=== PATIENT | female | born 1940 | race Caucasian/White ===

== ENCOUNTER 2022-02-08 14:55 | Outpatient (REF) | payer MEDICARE, SELFPAY ==
[2022-02-08 15:16] LABS: MANUAL DIFF FLAG NO
[2022-02-08 15:26] LABS: Basophils Percent Auto 0.6 % (0-2); Eosinophils Percent Auto 0.6 % (0-4); Hemoglobin 11.1 g/dl (12.0-16.0); Imm Gran Abs Auto 0.01 X10*3/uL (0.00-0.03); Imm Gran Pct Auto 0.2 % (0.0-0.4); Lymphocytes Absolute Auto 2.1 X10*3/uL (1.2-4.9); Mean Corpuscular HGB Conc 32.6 g/dl (31.0-35.0); Mean Corpuscular Hemoglobin 28.3 pg (27.0-33.0); Mean Corpuscular Volume 86.7 fL (80.0-98.0); Mean Platelet Volume 10.1 fL (9.4-12.3); Monocytes Absolute Auto 0.7 X10*3/uL (0.1-1.2); Neutrophils Absolute Auto 3.7 x10*3/uL (2.0-8.3); Neutrophils Percent Auto 56.6 % (45-73); Platelet Count 436 X10*3/uL (160-400); Red Blood Count 3.92 X10*6/uL (4.20-5.50); Red Cell Distribution Width 16.7 % (11.0-16.0); White Blood Count 6.5 X10*3/uL (4.8-10.8)
[2022-02-08 15:48] LABS: Iron 70 mcg/dL (30-160); Percent Iron Saturation 16 % (15-50); Total Iron Binding Capacity 428 mcg/dL (228-428); Unsaturated Iron Binding 358 ug/dL
[2022-02-08 16:04] LABS: Ferritin 35 ng/mL (10-250)
== END 2022-02-08 14:56 | disposition home or self-care (01) ==
LOC: HO.LAB 14:55
PROVIDERS: Visit Provider Internal Medicine Gastroenterology
DX: D50.9 Iron deficiency anemia, unspecified (principal)
CPT/HCPCS: 36415; 82728; 83540; 85025

== ENCOUNTER 2022-03-14 09:48 | Day surgery (SDC) | payer MEDICARE, SELFPAY ==
[2022-03-08 12:46] VITALS: BMI 17.4
--- NOTE | 2022-03-13 08:38 | P.CONAN_ITS ---
Documented by User: Zully Sepulveda NP 03/13/22 08:39 HPI - Anesthesia Eval Consult details Narrative: 81yo F for Upper Endoscopy and Colonoscopy [facility] Past Medical History Medical History Anemia Arthritis COVID-19 vaccine series completed Memory changes Surgical History Surgical History Hx of cholecystectomy Social History Social History Housing Other:: assisted living facility-[facility] Are you a primary career technical counselor to a significant other at home: No Do you presently have visiting nurse or other home services: Yes (as above noted) Patient Tobacco Use Status: Never used Tobacco Use of substances other than those prescribed or required for medical reasons: No Have you been hit, kicked, punched, or otherwise hurt by someone within the past year? If so, by whom?: No Are you DNR?: No Advance Directives Information Provided: Yes (will fax or bring DOS) Advance Directives on File: No Recently lost weight without trying: No Eating poorly because of decreased appetite: No Nutrition Risks: Surgical patient >75years Poor oral hygiene: No (full upper and partial lower denture) Meds Allergies Allergy/AdvReac Type Severity Reaction Status Date / Time Seasonal Allergies Allergy Mild Itchy Eyes Verified 03/08/22 12:21 Home Medications Medication Instructions Recorded Confirmed Last Taken Type diclofenac sodium 50 mg 1 tab PO BID 03/08/22 03/08/22 Unknown History tablet,delayed release ferrous sulfate 325 mg (65 mg 325 mg PO DAILY 03/08/22 03/08/22 Unknown History iron) tablet Exam Exam Date and Time: March 13, 2022 0838 Height,Weight and Vital Signs: Height 5 ft 2 in Weight 43.091 kg Pertinent Lab Results Pertinent Lab Results: Laboratory Tests 02/08/22 15:14 WBC 6.5 Hgb 11.1 L Hct 34.0 L Plt Count 436 H Assessment and Plan Assessment Anesthesia Assessment: Chart Reviewed Documented by User: Jairo Obrien MD 03/14/22 11:33 [facility] Past Medical History Medical History Anemia Arthritis COVID-19 vaccine series completed Memory changes Family History Family history of problems with anesthesia: No Surgical History Surgical History Hx of cholecystectomy History of Problems with Anesthesia: No Social History [facility] Are you a primary career technical counselor to a significant other at home: No Do you presently have visiting nurse or other home services: Yes (as above noted) Patient Tobacco Use Status: Never used Tobacco Use of substances other than those prescribed or required for medical reasons: No Have you been hit, kicked, punched, or otherwise hurt by someone within the past year? If so, by whom?: No Are you DNR?: No Advance Directives Information Provided: Yes (will fax or bring DOS) Advance Directives on File: No Recently lost weight without trying: No Eating poorly because of decreased appetite: No Nutrition Risks: Surgical patient >75years Poor oral hygiene: No (full upper and partial lower denture) Meds Allergies Allergy/AdvReac Type Severity Reaction Status Date / Time Seasonal Allergies Allergy Mild Itchy Eyes Verified 03/08/22 12:21 Home Medications Medication Instructions Recorded Confirmed Last Taken Type diclofenac sodium 50 mg 1 tab PO BID 03/08/22 03/08/22 Unknown History tablet,delayed release ferrous sulfate 325 mg (65 mg 325 mg PO DAILY 03/08/22 03/08/22 Unknown History iron) tablet Exam Airway Mallampati Class: I TM Dist: >3cm Neck ROM: Full Denture: Upper and Lower Loose/Missing/Broken Teeth: Yes Assessment and Plan Assessment Anesthesia Assessment: Anesthesia Plan Discussed Final Anesthetic Review Family History of Problems with Anesthesia: No History of Problems with Anesthesia: No NPO: Yes ASA Class: II Final Preanesthetic Review: No Changes in Pt Med Stat, Meds/Allgs Chart Reviewed, Consent Obtained/Reviewed and Anes Risks/Benef Reviewed Patient Risk: Low Procedure Risk: Low Anesthetic Plan Anesthetic Plan: MAC: Disposition: Standard PACU
[2022-03-14] MEDS: Sodium Phosphate,Mono-Dibasic 133 ML ENEMA PR ×2 (10:55→11:05)
[2022-03-14 10:57] VITALS: BP 127/70; PULSE 86; RESP 16; TEMP 37.1; O2SAT 97
--- NOTE | 2022-03-14 11:03 | P.HPSUR_ITS ---
Pre-Procedural Eval Section A Date of Service: 03/14/22 Section B Chief Complaint: Iron deficiency anemia, unspecified Details of Present Illness: see H&P no changes Relevant Family History (Specify if Yes): No Relevant Social History: None Present Medications: see Short Stay Collaborative assessment Medical History: No relevant PMH History of Previous Operations: No relevant previous surgery Allergies: Allergies Allergy/AdvReac Type Severity Reaction Status Date / Time Seasonal Allergies Allergy Mild Itchy Eyes Verified 03/08/22 12:21 Review of Systems Sugical H&P ROS: Negative: Constitution, Cardiovascular, Respiratory, Neurolo gical, Psychiatric, Hem-Onc, Allergic/Immunologic, Gastrointestinal, Genitourinary, Musculoskeletal, Integumentary, Endocrine and Eyes/Ears/Nose/Throat Exam Surgical H&P Exam: Normal: HEENT, Normal: Heart, Normal: Lungs, Normal: Extremities, Normal: Abdomen, Normal: Skin and Normal: Neurological Plan Diagnosis/Plan: Unchanged I have reviewed the history and physical and performed a pertinent physical examination on my patient. No changes have occurred unless specified.
[2022-03-14] MEDS: Lactated Ringers 1,000 ML 100 ML IVCONT (11:13)
--- NOTE | 2022-03-14 12:12 | P.BOP_ITS ---
Brief Operative Note Date of Service: 03/14/22 Pre-op diagnosis: iron def anemia Post-op diagnosis: same Procedure: egd colonoscopy Surgeon: Marcello Zapata Anesthesia: MAC Was an Hospice Team Lead used for this Procedure?: No Estimated blood loss (mL): 2 Pathology: other (bxs duodenum, antrum) Condition: stable Disposition: PACU
[2022-03-14 12:15] VITALS: BP 109/68; PULSE 67; RESP 12; TEMP 36.1; O2SAT 98
[2022-03-14 12:30] VITALS: BP 107/68; PULSE 77; RESP 16; TEMP 36.1; O2SAT 96
--- NOTE | 2022-03-14 12:31 | OP_ITS ---
SURGEON: Marcello Zapata MD INDICATIONS: Iron deficiency anemia. PREOPERATIVE DIAGNOSIS: POSTOPERATIVE DIAGNOSIS: PROCEDURE PERFORMED: Upper endoscopy with biopsy, colonoscopy to the terminal ileum. ESTIMATED BLOOD LOSS: COMPLICATIONS: ANESTHESIA: ASSISTANTS: SPECIMENS: MEDICATIONS: Monitored anesthesia care. DESCRIPTION OF PROCEDURE: History and physical were performed. The risks and benefits of the procedure were explained to the patient. Informed consent was obtained. The patient was placed in the left lateral decubitus position. The Olympus video gastroscope was introduced into the esophagus, stomach, and duodenum. Examination was performed. The scope was removed. She was repositioned for colonoscopy. Digital rectal exam was performed and was found to be normal. The Olympus pediatric video colonoscope was introduced into the rectum and advanced to the cecum without difficulty. The cecum was identified by transillumination, palpation, and identification of ileocecal valve. Examination was performed. The scope was removed. She tolerated the procedures well and was taken to recovery area in stable condition. FINDINGS: UPPER ENDOSCOPY: Esophagus: The esophagus was normal. Stomach: The stomach showed no evidence of masses or ulcers. There was mild erythema in the antrum. Biopsies were obtained to the antrum to rule out H pylori. Duodenum: The bulb and second portion were normal. Biopsies were obtained from the second portion. COLONOSCOPY: The terminal ileum was examined and appeared normal. There was large amount of liquid stool and undigested food material as well as some solid stool. This limited the sensitivity examination for detection of small polyps. No mass lesion was identified. The stool was tediously suctioned and washed as best possible. There was also some evidence that the patient had not stopped her iron as the stool was quite dark. No mass lesions were seen. There was moderate diverticulosis sigmoid. Retroflexed examination was normal. IMPRESSION: 1. Normal upper endoscopy. 2. Diverticulosis. 3. Limited colonoscopy, but adequate to rule out a significant lesion causing iron deficiency. MD ELBA Moreno/CHUCK / [id number]
== END 2022-03-14 13:03 | disposition home or self-care (01) ==
PROVIDERS: Visit Provider Internal Medicine Gastroenterology
PROC: (CPT 45378; principal; 2022-03-14 11:10)
DX: D50.9 Iron deficiency anemia, unspecified (principal); K57.30 Diverticulosis of large intestine without perforation or abscess without bleeding; R19.7 Diarrhea, unspecified; R11.10 Vomiting, unspecified; R68.81 Early satiety; M19.90 Unspecified osteoarthritis, unspecified site; R41.3 Other amnesia; Z79.899 Other long term (current) drug therapy; Z90.49 Acquired absence of other specified parts of digestive tract
CPT/HCPCS: 45378; 43239; 88305; 88342

== ENCOUNTER 2022-05-30 11:02 | Outpatient (REF) | payer MEDICARE, SELFPAY ==
--- NOTE | ~2022-05-30 | XR_ITS ---
EXAMINATION: XR CHEST CLINICAL INFORMATION: Cough COMPARISON: None TECHNIQUE: 2 views of the chest were obtained. FINDINGS: Prominent scoliotic curvature of the spine. Right upper quadrant surgical clips. The lungs are well expanded. There is no focal consolidation, edema, or effusion. No pneumothorax. The cardiomediastinal silhouette is within normal limits. No acute osseous abnormality. XR/XR chest 2V IMPRESSION: No acute pulmonary finding.
--- NOTE | ~2022-05-30 | CT_ITS ---
EXAMINATION: CT HEAD WITHOUT CONTRAST CLINICAL INFORMATION: Altered mental status. COMPARISON: None TECHNIQUE: Contiguous axial imaging was performed from the skull base to vertex without intravenous administration of contrast. This CT examination was performed using dose optimization techniques as appropriate, variously including the following: *Automated exposure control *Adjustment of mA and/or kV according to patient size (this includes techniques or standardized protocols for targeted exams where dose is matched to indication/reason for exam; i.e. extremities or head) *Use of iterative reconstruction technique DLP: 696 mGy-cm FINDINGS: There is no acute intra-axial, extra-axial bleed, masses or midline shift. There is an extra-axial left frontal lobe calcified lesion likely an old 1 cm meningioma. There is no acute infarction in evolution. There is no acute edema. The lateral ventricles are symmetrical but enlarged as are the cortical sulci. There is mild periventricular hypodensity in both cerebral hemispheres. Bone windows reveal no calvarial abnormality. No scalp soft tissue abnormality. Bilateral paranasal sinuses and mastoid air cells are well-aerated. CT/CT head/brain wo IV con IMPRESSION: No acute intracranial process seen. Age-related cerebral volume loss with chronic small vessel disease.
== END 2022-05-30 11:03 | disposition home or self-care (01) ==
LOC: HO.CT 11:02
PROVIDERS: Visit Provider Internal Medicine
DX: R05.9 Cough, unspecified (principal); R41.82 Altered mental status, unspecified
CPT/HCPCS: 70450; 71046